=== PATIENT | female | born 1985 | race Caucasian/White ===

== ENCOUNTER 2019-08-07 20:48 | Emergency (ER) | payer MEDICAID ==
[~2019-08-07] VITALS: Ht 162.6 cm; Wt 102.4 kg
[2019-08-07] MEDS ORDERED: LORazepam 1MG TABLET PO ONE (21:30)
[2019-08-07] MEDS ORDERED: LORazepam 1MG TABLET ONE (21:33)
--- NOTE | 2019-08-07 21:39 | NUR ---
PT TO ED WITH FOR MULTIPLE COMPLAINTS. REPORTS [facility] WON'T FILL HER MEDICATIONS. REPORTS SHE DOESN'T KNOW WHY. REPORTS USING METH AND LAST USED TODAY. DENIES SUICIDAL/HOMICIDAL IDEATIONS.
[2019-08-07 22:01] VITALS: BP 118/73
== END 2019-08-07 22:03 | disposition home or self-care (01) ==
LOC: ED 22:00
DX: S16.1XXA Strain of muscle, fascia and tendon at neck level, initial encounter (principal); M25.512 Pain in left shoulder; F15.122 Other stimulant abuse with intoxication with perceptual disturbance; F41.9 Anxiety disorder, unspecified; X58.XXXA Exposure to other specified factors, initial encounter; Y93.89 Activity, other specified; Y92.89 Other specified places as the place of occurrence of the external cause; Y99.8 Other external cause status
CPT/HCPCS: 99283